=== PATIENT | female | born 1995 | race African-American/Black ===

== ENCOUNTER 2023-09-16 10:27 | Inpatient (IN) | payer MEDICAID, OTHER ==
[~2023-09-16] VITALS: Ht 157.5 cm; Wt 54.0 kg
[2023-09-16 12:17] LABS: COVID AG,FIA SOURCE NPH
[2023-09-16 12:21] LABS: APPEARANCE,URINE HAZY (CLEAR); BILIRUBIN,URINE NEGATIVE (NEGATIVE); COLOR,URINE LIGHT YELLOW (YELLOW); GLUCOSE, URINE (UA) NEGATIVE (NEGATIVE); LEUKOCYTE ESTERASE ,URINE TRACE (NEGATIVE); NITRATE,URINE POSITIVE (NEGATIVE); OCCULT BLOOD,URINE NEGATIVE (NEGATIVE); PROTEIN,URINE TRACE mg/dL (NEGATIVE); SPECIFIC GRAVITIY, URINE 1.012 (1.003-1.030); UROBILINOGEN,URINE <=1.0 mg/dL (<=1.0)
[2023-09-16 12:29] LABS: ALCOHOL, URINE DRUG SCREEN NEGATIVE (NEGATIVE); AMPHET/METH SCREEN,URINE NEGATIVE (NEGATIVE); BARBITURATE SCREEN, URINE NEGATIVE (NEGATIVE); BENZODIAZEPINES SCREEN,URINE NEGATIVE (NEGATIVE); CANNABINOID SCREEN,URINE POSITIVE (NEGATIVE); COCAINE SCREEN,URINE POSITIVE (NEGATIVE); METHADONE SCREEN, URINE NEGATIVE (NEGATIVE); OPIATE SCREEN,URINE NEGATIVE (NEGATIVE); PHENCYCLIDINE SCREEN,URINE NEGATIVE (NEGATIVE)
[2023-09-16 12:37] LABS: BASOPHILS % (AUTO) 0.2 % (0.0-2.0); EOSINOPHILS % (AUTO) 0 % (1.0-6.0); HEMATOCRIT 30.9 % (36-46); HEMOGLOBIN 9.6 g/dL (12.0-16.0); LYMPHOCYTES # (AUTO) 0.9 K/uL (1.0-4.8); MEAN CORPUSCULAR HEMOGLOBIN 23.4 pg (26.0-34.0); MEAN CORPUSCULAR VOLUME 76 fL (80-100); MONOCYTES # (AUTO) 0.8 K/uL (0.1-1.0); MONOCYTES % (AUTO) 4.6 % (2.0-9.0); NEUTROPHILS # (AUTO) 15.7 K/uL (1.8-7.7); PLATELET COUNT (AUTO) 265 K/uL (150-450); RED BLOOD CELL COUNT(AUTO) 4.08 MIL/uL (4.00-5.20); RED CELL DISTRIBUTION WIDTH 17.3 % (11.5-14.5); WHITE BLOOD COUNT (AUTO) 17.3 K/uL (4.5-11.0)
[2023-09-16 12:38] LABS: NEUTROPHILS % (AUTO) 90.2 % (40.0-70.0)
[2023-09-16 12:41] LABS: ANION GAP 14 mmol/L (8-16); CALCIUM, TOTAL 9.5 mg/dL (8.8-10.5); CARBON DIOXIDE 24 mmol/L (22-29); CHLORIDE 100 mmol/L (98-107); CREATININE 1.05 mg/dL (0.60-1.30); GLOMERULAR FILTR. RATE CALC > 60 mL/min (>60); GLUCOSE,RANDOM 79 mg/dL (70-110); POTASSIUM 3.1 mmol/L (3.5-5.1); SODIUM SERUM 138 mmol/L (136-145); UREA NITROGEN, BLOOD 8 mg/dL (7-18)
[2023-09-16 12:44] LABS: SARS-COV2 (COVID) ANTIGEN,FIA Negative (Negative)
[2023-09-16 12:47] LABS: ALCOHOL, BLOOD (SERUM) < 3 mg/dL (0-10)
[2023-09-16 12:52] LABS: HCG,QUANTITATIVE 1 mIU/mL (0-6)
[2023-09-16 13:11] LABS: BACTERIA,URINE Many /HPF (None Seen); RBC,URINE None Seen /HPF (0-2); SQUAMOUS EPITHELIAL CELL,UR Few /LPF (None Seen); WBC,URINE 0-2 /HPF (0-5)
[2023-09-16 13:22] LABS: RBC MORPHOLOGY COMMENT ABNORMAL RBC MORPH
[2023-09-16] MEDS: CEPHALEXIN MONOHYDRATE 500 MG CAPSULE PO ONE (14:28)
[2023-09-16] MEDS: POTASSIUM CHLORIDE 20 MEQ ER TABLET PO ONE (14:29)
[2023-09-16] MEDS ORDERED: ZOLPIDEM TARTRATE 10 MG TABLET PO PRN (23:45)
[2023-09-16] MEDS ORDERED: HALOPERIDOL 5 MG TABLET PO PRN (23:45)
[2023-09-17 01:13] VITALS: BP 111/62; PULSE 77; RESP 18; TEMP 97.5
[2023-09-17] MEDS ORDERED: CEPHALEXIN MONOHYDRATE 500 MG CAPSULE PO SCH (08:00)
[2023-09-17 08:12] VITALS: BP 101/57; PULSE 78; RESP 16; TEMP 97.9; O2SAT 100
[2023-09-17] MEDS: CEPHALEXIN MONOHYDRATE 500 MG CAPSULE PO SCH (08:13)
[2023-09-17] MEDS: OLANZapine 5 MG TABLET PO SCH (11:47)
[2023-09-17] MEDS ORDERED: GuaiFENesin/D-METHORPHAN [SUGAR-FREE] 200-20MG/10 ML SYRUP UDCUP PO PRN (15:00)
[2023-09-17] MEDS ORDERED: LOPERAMIDE HCL 2 MG CAPSULE PO PRN (15:00)
[2023-09-17] MEDS ORDERED: CloNIDine HCL 0.1 MG TABLET PO PRN (15:00)
[2023-09-17] MEDS ORDERED: IBUPROFEN 400 MG TABLET PO PRN (15:00)
[2023-09-17] MEDS ORDERED: MAG HYDROX/ALUMINUM HYD/SIMETH ES 30 ML SUSPENSION UDCUP PO PRN (15:00)
[2023-09-17] MEDS ORDERED: ONDANSETRON HCL 4 MG TABLET PO PRN (15:00)
[2023-09-17] MEDS ORDERED: PETROLATUM,WHITE 28 GM JELLY TP PRN (15:00)
[2023-09-17] MEDS ORDERED: DOCUSATE SODIUM 100 MG CAPSULE PO PRN (15:00)
[2023-09-17] MEDS ORDERED: ACETAMINOPHEN 325 MG TABLET PO PRN (15:00)
[2023-09-17] MEDS ORDERED: ALBUTEROL SULFATE HFA 90 MCG/PUFF 8 GM INHALER IH PRN (15:00)
[2023-09-17] MEDS ORDERED: MAGNESIUM HYDROXIDE SUSPENSION 30 ML UDCUP PO PRN (15:00)
[2023-09-17] MEDS ORDERED: NICOTINE 14 MG/24 HOUR PATCH TD PRN (15:00)
[2023-09-17 19:28] VITALS: BP 105/67; PULSE 70
[2023-09-17 22:00] VITALS: BP 139/52; PULSE 87; RESP 18; TEMP 97.2; O2SAT 100
[2023-09-18] VITALS: BP 139/52; PULSE 87; RESP 18; TEMP 97.2; O2SAT 100
[2023-09-18 08:25] VITALS: BP 130/87; PULSE 100; RESP 16; TEMP 97.5; O2SAT 100
[2023-09-18] MEDS: LORazepam 2 MG TABLET PO PRN (19:27)
[2023-09-18 23:20] VITALS: BP 116/69; PULSE 100; RESP 18; TEMP 97.5; O2SAT 100
[2023-09-19 08:14] VITALS: BP 125/76; PULSE 98; RESP 15; TEMP 97.9; O2SAT 97
[2023-09-19 08:41] LABS: HEMOGLOBIN A1C 5.7 % (3.8-5.6)
[2023-09-19 08:43] LABS: CHOL/HDL RATIO 3.6 (3.9-5.7); THYROID STIMULATING HORMONE 0.99 uIU/mL (0.36-3.74)
[2023-09-20 08:38] VITALS: BP 140/17; PULSE 100; RESP 19; TEMP 98; O2SAT 100
[2023-09-20 21:15] VITALS: BP 115/87; PULSE 102; RESP 16; TEMP 97.4; O2SAT 100
[2023-09-21 08:06] VITALS: BP 102/53; PULSE 70; RESP 18; TEMP 97.7; O2SAT 97
[2023-09-21 08:52] LABS: BASOPHILS % (AUTO) 0.6 % (0.0-2.0); EOSINOPHILS % (AUTO) 2.5 % (1.0-6.0); HEMATOCRIT 29.3 % (36-46); HEMOGLOBIN 9.2 g/dL (12.0-16.0); LYMPHOCYTES % (AUTO) 38.9 % (22.0-44.0); MEAN CORPUSCULAR HEMOGLOBIN 24.2 pg (26.0-34.0); MEAN CORPUSCULAR HGB CONC 31.5 G/dL (31.0-37.0); MEAN CORPUSCULAR VOLUME 77 fL (80-100); MONOCYTES # (AUTO) 0.5 K/uL (0.1-1.0); MONOCYTES % (AUTO) 9.5 % (2.0-9.0); NEUTROPHILS # (AUTO) 2.4 K/uL (1.8-7.7); NEUTROPHILS % (AUTO) 48.5 % (40.0-70.0); PLATELET COUNT (AUTO) 241 K/uL (150-450); RED BLOOD CELL COUNT(AUTO) 3.82 MIL/uL (4.00-5.20); RED CELL DISTRIBUTION WIDTH 17.9 % (11.5-14.5)
[2023-09-21 09:08] LABS: RBC MORPHOLOGY COMMENT ABNORMAL RBC MORPH
[2023-09-21 20:09] VITALS: BP 111/62; PULSE 89; RESP 19; TEMP 97; O2SAT 97
[2023-09-22 10:54] VITALS: BP 114/60; PULSE 84; RESP 18; TEMP 98; O2SAT 100
[2023-09-22] MEDS ORDERED: OLAN5TAB52 PO ×2 (11:10→13:14)
== END 2023-09-22 12:40 | disposition home or self-care (01) | DRG 750 ==
LOC: EMS 10:27 → B3A 21:25
PROVIDERS: ADMIT Psychiatry & Neurology Child & Adolescent Psychiatry; ATTEND Psychiatry & Neurology Child & Adolescent Psychiatry
PROC: GZ52ZZZ Individual Psychotherapy, Cognitive (ICD-10-PCS; principal; 2023-09-17)
DX: F20.0 Paranoid schizophrenia (principal); D64.9 Anemia, unspecified; D72.829 Elevated white blood cell count, unspecified; Z20.822 Contact with and (suspected) exposure to COVID-19; E87.6 Hypokalemia; F14.10 Cocaine abuse, uncomplicated; F12.10 Cannabis abuse, uncomplicated
CPT/HCPCS: 80048; 80061; 80307; 81001; 83036; 84132; 84443; 84702; 85025; 87086; 87186; 99285; G0480